=== PATIENT | female | born 2000 | race Caucasian/White ===

== ENCOUNTER 2021-06-19 13:04 | Emergency (ER) | payer SELFPAY ==
[~2021-06-19] VITALS: Ht 160 cm; Wt 71.0 kg
[2021-06-19 13:13] VITALS: BP 116/71
[2021-06-19] MEDS ORDERED: IBUPROFEN 600MG TABLET PO ONE (13:45)
== END 2021-06-19 15:19 | disposition home or self-care (01) ==
LOC: ER 13:04
DX: M25.531 Pain in right wrist (principal); Z98.890 Other specified postprocedural states; Z88.8 Allergy status to other drugs, medicaments and biological substances; X50.0XXA Overexertion from strenuous movement or load, initial encounter; Y93.89 Activity, other specified; Y92.89 Other specified places as the place of occurrence of the external cause; Y99.8 Other external cause status
CPT/HCPCS: 73110; 73130; 99284

== ENCOUNTER 2021-11-04 17:39 | Observation (INO) | payer MEDICAID ==
[~2021-11-04] VITALS: Ht 160 cm; Wt 74.8 kg
[2021-11-04] MEDS ORDERED: PREN-170 MT (19:28)
[2021-11-04 19:32] LABS: CLARITY URINE CLEAR (CLEAR); COLOR URINE YELLOW (YELLOW); KETONES URINE 1+ (NEGATIVE); LEUKOCYTE ESTERASE URINE 2+ (NEGATIVE); NITRITE URINE NEGATIVE (NEGATIVE); OCCULT BLOOD URINE NEGATIVE (NEGATIVE); PROTEIN URINE NEGATIVE (NEGATIVE); SPECIFIC GRAVITY URINE 1.006 (1.005-1.030); UROBILINOGEN URINE 0.2 E.U./dL (0.2-1.0)
== END 2021-11-04 20:00 | disposition home or self-care (01) ==
LOC: 8EST NSY 17:39 → 8 EST A/PP 17:46
PROVIDERS: ADMIT Obstetrics & Gynecology; ATTEND Obstetrics & Gynecology
DX: O46.92 Antepartum hemorrhage, unspecified, second trimester (principal); O62.9 Abnormality of forces of labor, unspecified; Z3A.21 21 weeks gestation of pregnancy
CPT/HCPCS: 59025; 76805; 76818; 81003; G0378; 99281

== ENCOUNTER 2021-12-27 02:50 | Observation (INO) | payer MEDICAID ==
[~2021-12-27] VITALS: Ht 160 cm; Wt 74.8 kg
[~2021-12-27 02:50] MED LIST: PREN-170 MT
== END 2021-12-27 04:29 | disposition home or self-care (01) ==
LOC: 8 EST LDRP 02:50
PROVIDERS: ADMIT Specialist; ATTEND Specialist
DX: O26.893 Other specified pregnancy related conditions, third trimester (principal); R10.2 Pelvic and perineal pain; N89.8 Other specified noninflammatory disorders of vagina; R10.30 Lower abdominal pain, unspecified; O24.419 Gestational diabetes mellitus in pregnancy, unspecified control; Z3A.28 28 weeks gestation of pregnancy
CPT/HCPCS: 59025; G0378; 99281

== ENCOUNTER 2022-01-18 20:18 | Emergency (ER) | payer MEDICAID ==
[~2022-01-18] VITALS: Ht 160 cm; Wt 82.0 kg
[2022-01-18 20:29] VITALS: BP 132/84
== END 2022-01-18 22:32 | disposition left against medical advice (07) ==
LOC: ER 20:18
DX: Z53.21 Procedure and treatment not carried out due to patient leaving prior to being seen by health care provider (principal)
CPT/HCPCS: 93005

== ENCOUNTER 2022-03-10 18:52 | Observation (INO) | payer MEDICAID ==
[~2022-03-10] VITALS: Ht 160 cm; Wt 88.5 kg
[2022-03-10] MEDS ORDERED: ACETAMINOPHEN 325MG TABLET PO PRN (20:00)
[2022-03-10] MEDS ORDERED: LACTATED RINGERS 1,000 ML IV SCH (20:00)
[2022-03-10 20:20] LABS: BASOPHILS % 0.2 % (0.0-2.0); EOSINOPHILS % 0.3 % (0.0-5.0); HEMATOCRIT. 30.1 % (36.0-48.0); HEMOGLOBIN. 9.8 g/dL (12.0-16.0); LYMPHOCYTES % 14.2 % (20.0-50.0); MEAN CORPUSCULAR HEMOGLOBIN 26.1 pg (28.0-32.0); MEAN CORPUSCULAR VOLUME 80.1 fL (81.0-99.0); MEAN PLATELET VOLUME 9.7 fl (7.4-10.4); MONOCYTES % 7.9 % (2.0-8.0); NEUTROPHILS % 77.4 % (40.0-76.0); PLATELET 282 x1000/uL (130-400); RED BLOOD CELL COUNT 3.75 mill/uL (4.2-5.4); RED CELL DISTRIBUTION WIDTH 14.2 % (11.6-14.6)
[2022-03-10 20:28] LABS: CHLORIDE 108 mEq/L (98-107)
[2022-03-10 20:28] LABS: CLARITY URINE TURBID (CLEAR); COLOR URINE YELLOW (YELLOW); KETONES URINE NEGATIVE (NEGATIVE); LEUKOCYTE ESTERASE URINE 3+ (NEGATIVE); NITRITE URINE NEGATIVE (NEGATIVE); OCCULT BLOOD URINE 1+ (NEGATIVE); PROTEIN URINE 1+ (NEGATIVE); SPECIFIC GRAVITY URINE 1.019 (1.005-1.030); UROBILINOGEN URINE 0.2 E.U./dL (0.2-1.0)
[2022-03-10 20:39] LABS: D-DIMER 2.84 mg/L FEU (<0.50); INR 0.9; PROTHROMBIN TIME 9.8 sec (9.6-11.0)
== END 2022-03-10 21:30 | disposition home or self-care (01) ==
LOC: 8 EST LDRP 18:52
PROVIDERS: ADMIT Obstetrics & Gynecology; ATTEND Obstetrics & Gynecology
DX: O26.893 Other specified pregnancy related conditions, third trimester (principal); R51.9 Headache, unspecified; R03.0 Elevated blood-pressure reading, without diagnosis of hypertension; H53.8 Other visual disturbances; Z3A.39 39 weeks gestation of pregnancy; Z79.899 Other long term (current) drug therapy; Z98.890 Other specified postprocedural states
CPT/HCPCS: 36415; 59025; 76815; 76818; 80053; 81003; 84550; 85025; 85379; 85384; 96360; 96361; 99281; G0378

== ENCOUNTER 2023-02-14 17:12 | Emergency (ER) | payer MEDICAID ==
[~2023-02-14] VITALS: Ht 160 cm; Wt 77.5 kg
[2023-02-14 17:53] VITALS: O2SAT 100
[2023-02-14] MEDS ORDERED: CEPH500C2 MT (17:59)
[2023-02-14] MEDS ORDERED: SULF1TAB48 MT (17:59)
[2023-02-14 18:12] LABS: CLARITY URINE CLEAR (CLEAR); COLOR URINE YELLOW (YELLOW); GLUCOSE URINE NEGATIVE (NEGATIVE); KETONES URINE NEGATIVE (NEGATIVE); LEUKOCYTE ESTERASE URINE 1+ (NEGATIVE); NITRITE URINE NEGATIVE (NEGATIVE); OCCULT BLOOD URINE NEGATIVE (NEGATIVE); PH URINE 7.5 (4.5-8.0); PROTEIN URINE NEGATIVE (NEGATIVE); SPECIFIC GRAVITY URINE 1.017 (1.005-1.030); UROBILINOGEN URINE 0.2 E.U./dL (0.2-1.0)
[2023-02-14 18:30] LABS: SQUAMOUS EPITHELIAL CELL URINE 3+ /lpf (RARE/1+)
[2023-02-14 18:31] LABS: RBC URINE 0-2 /hpf (0-2)
[2023-02-14 18:32] LABS: BACTERIA URINE 2+
[2023-02-14 20:03] LABS: BASOPHILS % 0.4 % (0.0-2.0); EOSINOPHILS % 0.9 % (0.0-5.0); HEMATOCRIT. 38.7 % (36.0-48.0); HEMOGLOBIN. 12.4 g/dL (12.0-16.0); LYMPHOCYTES % 36.7 % (20.0-50.0); MEAN CORPUSCULAR HEMOGLOBIN 26.4 pg (28.0-32.0); MEAN CORPUSCULAR HGB CONC 32.1 g/dL (31.0-37.0); MEAN CORPUSCULAR VOLUME 82.3 fL (81.0-99.0); MEAN PLATELET VOLUME 9.3 fl (7.4-10.4); MONOCYTES % 7.6 % (2.0-8.0); NEUTROPHILS % 54.4 % (40.0-76.0); PLATELET 259 x1000/uL (130-400); RED BLOOD CELL COUNT 4.71 mill/uL (4.2-5.4); RED CELL DISTRIBUTION WIDTH 15.4 % (11.6-14.6)
[2023-02-14 20:13] LABS: CHLORIDE 112 mEq/L (98-107); INDEX HEMOLYSI 1 (1-3); INDEX ICTERIC 1 (1-4); INDEX LIPEMIC 1 (1-3); POTASSIUM 4.4 mEq/L (3.5-5.1); SODIUM 142 mEq/L (136-145)
[2023-02-14 20:14] LABS: HCG SCREEN NEGATIVE
[2023-02-14 20:20] LABS: ALANINE AMINOTRANSFERASE 20 IU/L (13-61); ALBUMIN 3.9 g/dL (3.4-5.0); ASPARTATE AMINOTRANSFERASE 15 IU/L (15-37); BILIRUBIN TOTAL 0.2 mg/dL (0.1-1.0); CALCIUM 8.4 mg/dL (8.5-10.1); CARBON DIOXIDE 26 mEq/L (21-32); GLUCOSE 96 mg/dL (70-105); PROTEIN TOTAL 7.5 g/dL (6.0-8.3); UREA NITROGEN BLOOD 9 mg/dL (7-21)
[2023-02-14 21:19] VITALS: BP 118/72; PULSE 57; RESP 16; TEMP 98.1
== END 2023-02-14 21:25 | disposition home or self-care (01) ==
LOC: ER 17:12
DX: L03.317 Cellulitis of buttock (principal)
CPT/HCPCS: 36415; 80053; 81003; 84703; 85025; 99283

== ENCOUNTER 2023-02-25 18:24 | Emergency (ER) | payer MEDICAID ==
[~2023-02-25] VITALS: Ht 167.6 cm; Wt 85.0 kg
[~2023-02-25 18:24] MED LIST changes: +CEPH500C2 MT; +SULF1TAB48 MT
[2023-02-25 18:31] VITALS: BP 114/66; PULSE 76; RESP 18; TEMP 99.1; O2SAT 98
== END 2023-02-25 21:18 | disposition left against medical advice (07) ==
LOC: ER 18:24
DX: J02.0 Streptococcal pharyngitis (principal); Z98.890 Other specified postprocedural states
CPT/HCPCS: 99281